=== PATIENT | female | born 1990 | race Two or more races ===

== ENCOUNTER 2017-03-22 13:17 | Inpatient (IN) | payer OTHER ==
[~2017-03-22] VITALS: Ht 157.5 cm; Wt 82.7 kg
--- NOTE | ~2017-03-22 | DS ---
PATIENT'S NAME: PAULETTE DIMAS [facility] AGE: 26 Y [address] ROOM: [place] [address] LOCATION: BS ADMIT DATE: 03/22/2017 Discharge Summary DISCHARGE DATE: 03/25/2017 FAMILY PHYSICIAN: Olive Ceja MD ATTENDING PHYSICIAN: Olive Ceja FINAL DIAGNOSES: 1. Intrauterine at 35 weeks and 5 days. 2. Prior section. 3. premature rupture of membranes. PROCEDURES PERFORMED: During admission, repeat low transverse section. REASON FOR ADMISSION: This is a 26-year-old G2, P1-0-0-1 female. She was admitted at 35 weeks and 5 days' gestation with premature rupture of membranes. HOSPITAL COURSE: The patient was admitted. She had a repeat low transverse section. Postoperatively, she did well. Postoperative hemoglobin was 10.4. She was ambulating well, urinating without difficulty, and desired to be discharged home on postoperative day #2. DISCHARGE MEDICATIONS: See list. DISCHARGE INSTRUCTIONS: The patient was given routine instructions. OLIVE CEJA MD AJJ/modl /[id number] d: 04/14/17 0410 t: 04/24/17 0840, DISCHARGE SUMMARY
--- NOTE | ~2017-03-22 | OR ---
PATIENT'S NAME: DIMAS [facility] AGE: 26 Y [address] ROOM: [place] [address] LOCATION: GOBS ADMIT DATE: 03/22/2017 OR/Procedure Report DISCHARGE DATE: FAMILY PHYSICIAN: Olive Barboza MD ATTENDING PHYSICIAN: Olive Barboza SURGEON: Olive Barboza MD PHARMACY TECHNICIAN ASSISTANT: DATE OF PROCEDURE: 03/22/2017 PREOPERATIVE DIAGNOSES: 1. Intrauterine at 35 weeks and 5 days. 2. premature rupture of membranes. 3. Vaginal bleeding. 4. Prior section. POSTOPERATIVE DIAGNOSES: 1. Intrauterine at 35 weeks and 5 days. 2. premature rupture of membranes. 3. Vaginal bleeding. 4. Prior section. PROCEDURE: Repeat low transverse section. PHARMACY TECHNICIAN ASSISTANT SURGEON: Dr. Cramer. Dr. Cramer was necessary for adequate visualization of tissues and delivery of the fetus. ESTIMATED BLOOD LOSS: 500 mL. FINDINGS: Female infant. scores 9 and 9. Weight 5 pounds and 10 ounces. Intact placenta, 3-vessel cord. Normal uterus, tubes, and ovaries. Blood-tinged amniotic fluid. INDICATIONS: The patient is a 26-year-old, G2, P 1-0-0-1 female. She presented with vaginal bleeding and ruptured membranes. She had an uncomplicated . Prior to the procedure, the risks, benefits, and alternatives to the procedure were discussed with the patient. She understands the risks to be, but not to be limited to bleeding, infection, damage to the bowel, bladder, ureter, and surrounding organs and desired to proceed. DESCRIPTION OF PROCEDURE: The patient was taken to the operating room. Spinal anesthesia was found to be adequate. She was prepped and draped in dorsal supine position with leftward tilt. A Pfannenstiel skin incision was made. It was carried down through to the fascia. The fascia was incised. The fascial incision was extended. The rectus muscles were . The PATIENT'S NAME: JUDIE LEVINDALE [facility] AGE: 26 Y [address] ROOM: [place] [address] LOCATION: [facility] ADMIT DATE: 03/22/2017 OR/Procedure Report DISCHARGE DATE: FAMILY PHYSICIAN: Olive Barboza MD ATTENDING PHYSICIAN: Olive Barboza peritoneum was entered. The uterus was incised in low transverse fashion with the scalpel. The uterine incision was extended with vertical traction. Surgeon's hand was inserted into the uterus. The head delivered. The rest of fetus delivered. The nose and mouth were bulb suctioned. The cord was clamped and cut. The was handed to awaiting team. Cord pH and cord blood were drawn. The placenta delivered with manual traction. Uterus was exteriorized and cleared of clots and debris. It was repaired with 0 Vicryl in running locked fashion with [id number] sutures used for hemostasis. It was returned to the abdomen. Hemostasis was again noted. The fascia was repaired with 0 Vicryl in a running fashion. Subcutaneous adipose tissue was hemostatic. It was irrigated. The skin was closed with 4-0 Vicryl suture and Steri-Strips were placed. COMPLICATIONS: None. CONDITION: Mom stable in room. to the NICU. OLIVE BARBOZA MD AJJ/modl /[id number] d: 03/22/172049 t: 03/26/17 0851, OPERATIVE SUMMARY
[2017-03-22 13:56] LABS: BASOPHIL % 0.2 %; EOSINOPHIL # 0.1 K/uL (0.0-0.5); EOSINOPHIL % 0.8 %; HEMATOCRIT 36.8 % (33.0-46.0); HEMOGLOBIN 12.3 g/dL (11.0-15.0); IMMATURE GRANULOCYTE # 0.1 K/uL (0.0-0.3); IMMATURE GRANULOCYTE % 0.7 %; LYMPHOCYTE # 2.2 K/uL (0.8-4.0); LYMPHOCYTE % 24.6 %; MCH 29.5 pg (27.0-34.0); MCHC 33.4 gm/dL (32.0-36.5); MCV 88.2 fl (83.0-98.0); MONOCYTE # 0.7 K/uL (0.0-1.0); MONOCYTE % 7.5 %; MPV 10.3 fl (9.4-12.4); NEUTROPHIL # (ANC) 5.9 K/uL (1.8-7.8); NEUTROPHIL % 66.2 %; NRBC % 0 /100WBC (0-0.00); PLATELET COUNT 252 K/uL (150-450); RBC 4.17 M/uL (3.50-5.00); WBC 8.8 K/uL (4.0-11.0)
[2017-03-22 15:16] LABS: PCO2 48 mmHg (35-45)
[2017-03-22] MEDS ORDERED: PRENATAL 1+1)(P1 TAB PO (15:16)
[2017-03-22 15:17] LABS: BICARBONATE 22.8 mmol/L (18.0-23.0); PO2 19 mmHg (80-90)
--- NOTE | 2017-03-23 04:48 | NUR ---
vss. has been up to the bathroom, voided without difficulty. percocet due at 0800. fundus firm, -1, small flow. microfoam dressing to incision c/d/i. pumping.
[2017-03-23 05:04] LABS: BASOPHIL % 0.2 %; EOSINOPHIL % 0.2 %; HEMATOCRIT 31.9 % (33.0-46.0); HEMOGLOBIN 10.4 g/dL (11.0-15.0); IMMATURE GRANULOCYTE # 0.1 K/uL (0.0-0.3); IMMATURE GRANULOCYTE % 0.7 %; LYMPHOCYTE # 2.3 K/uL (0.8-4.0); LYMPHOCYTE % 19.3 %; MCH 29.3 pg (27.0-34.0); MCHC 32.6 gm/dL (32.0-36.5); MCV 89.9 fl (83.0-98.0); MONOCYTE % 8.4 %; MPV 10.3 fl (9.4-12.4); NEUTROPHIL # (ANC) 8.6 K/uL (1.8-7.8); NEUTROPHIL % 71.2 %; NRBC % 0 /100WBC (0-0.00); PLATELET COUNT 232 K/uL (150-450); RBC 3.55 M/uL (3.50-5.00); WBC 12.1 K/uL (4.0-11.0)
--- NOTE | 2017-03-23 12:15 | NUR ---
Introduced self/role to patient and her Kevin in the NICU. Patient stated her employment at the [employer] ended on the last day of school. Baby is covered under her husbands insurance but would like to apply for Medicaid. Encouraged them to call insurance today or tomorrow to get baby added to the policy since baby is in the NICU. Mom said she would do that today, had forgotten about that. They have a six year son whom is staying with family in [place]. One of the parents plans to be here most of the time, either room in or they do have family here in [place] too. She plans to try and breastfeed but may have to supplement as she had problems with their first baby. Currently using donor milk. They report having all the needed baby supplies already. Gave them a list of resources for [facility]. Also went over post depression and gave her a hand out. They had no questions or needs at this time.
--- NOTE | 2017-03-23 18:54 | NUR ---
Last VS: T:98.6 P:71 R: 14 BP: 114/59 Pain rating: . Last pain med: (2) percocets at 0745, 1245 and 1645. Medicated at: Effective: Breasts: , Nipples: Fundus: firm and 1 finger down Lochia:small flow incision clean and dry with sutures and strips intact.. Voiding well: yes Significant event: . patient has been up to the bathroom, hallway and nice. showered and took dressing off. Incision clean and dry with sutures and strips intact. patient pumped x3 times this shift. last around 1500. baby is in the nicu. I dc'd her saline lock.
--- NOTE | 2017-03-24 11:48 | NUR ---
Last VS: T:98.4 P:82 R: 14 BP: 104/58 Pain rating: . Last pain med: 2 percocets at 1020 rates pain a 2-3 Medicated at: Effective: R Lung sounds: , L Lung sounds: lung sounds clear Fundus: firm and 1 finger down Lochia: , Breasts: , Nipples: Incision: , Incision appearance: incision clean and dry with sutures and strips intact. Incision closure: Bowel sounds: present Passing flatus: yes Voiding well: yes Significant event: . patient has been up and about in room, lenz and down to the nicu. patient pumps and is getting 3-4 ml per pumping. patient has showered and bed linens changed.
--- NOTE | 2017-03-24 17:08 | NUR ---
vs wnl, ambulates to NICU to visit baby, fundus firm, small flow, incision clean dry intact approximated, steri strips and sutures, motrin last @ 1230 Percocet 2 tabs last @ 1600.
--- NOTE | 2017-03-25 04:21 | NUR ---
Last VS: T:98.0 P:75 R: 16 BP: 122/71 Pain ratin Last pain med: PERCOCET/MOTRIN Medicated at: 0400/2200 Effective: YES R Lung sounds: CLEAR L Lung sounds: CLEAR Fundus: FIRM,MIDLINE ,1 BELOW Lochia: SM,RUBRA Breasts: , Nipples: CRACKED PER PT REPORT/HAS BOTH NIPPLE CREAMS Incision: , Incision appearance: STERI STRIPS/APPROX Incision closure: Bowel sounds: Passing flatus: Voiding well: Y Significant event: PT UP TO NICU FREQUENTLY. INDEPENDENT WITH CARES. PUMPS.
[2017-03-25] MEDS ORDERED: APNO TOP (10:28)
[2017-03-25] MEDS ORDERED: PERCOCET 5-3251 EACH PO (10:29)
[2017-03-25] MEDS ORDERED: MOTRIN800 MG PO (10:29)
== END 2017-03-25 23:20 | disposition disaster alternative care site (69) | DRG 766 ==
LOC: GOBS 13:17
PROVIDERS: ADMIT Obstetrics & Gynecology
PROC: 10D00Z1 Extraction of Products of Conception, Low, Open Approach (ICD-10-PCS; principal; 2017-03-22)
DX: O42.013 Preterm premature rupture of membranes, onset of labor within 24 hours of rupture, third trimester (principal); O67.9 Intrapartum hemorrhage, unspecified; O34.211 Maternal care for low transverse scar from previous cesarean delivery; Z3A.35 35 weeks gestation of pregnancy; Z37.0 Single live birth
CPT/HCPCS: J0690; J1885; J2001; J7120